=== PATIENT | male | born 1995 | race Caucasian/White ===

== ENCOUNTER 2016-06-08 17:27 | Emergency (ER) | payer SELFPAY ==
[2016-06-08 17:39] VITALS: BP 137/64
[2016-06-08] MEDS ORDERED: Tetan/Diph/Pertus SYR(Tdap)* 0.5 ML SYR(BOOSTRIX) use SYR IM ONE (17:47)
--- NOTE | 2016-06-08 18:25 | UC ---
Lower Extremity/Ankle HPI - HPI Summary HPI Summary: THREE DAYS AGO STEPPED ON NAIL. PAIN IN (PLANTAR 3RD DISTAL METATARSAL ASPECT) RIGHT FOOT. NO DISCHARGE. LAST TETANUS SHOT 16 YEARS AGO. - History of Current Complaint Chief Complaint: UCLowerExtremity Stated Complaint: STEPPED ON BELEN NAIL Time Seen by Provider: 06/08/16 17:32 Hx Obtained From: Patient, Family/Senior Sales Assistant Onset/Duration: Sudden Onset, Lasting Days, Still Present Severity Initially: Mild Severity Currently: Mild Pain Intensity: 3 Pain Scale Used: 0-10 Numeric Aggravating Factor(s): Standing, Ambulation Alleviating Factor(s): Rest Able to Bear Weight: Yes Related History: Occupational Injury - Risk Factors Gout Risk Factors: Negative DVT Risk Factors: Negative Septic Arthritis Risk Factor: Negative - Allergies/Home Medications Allergies/Adverse Reactions: Allergies Allergy/AdvReac Type Severity Reaction Status Date / Time Amoxicillin Allergy Hives Verified 06/08/16 17:40 Penicillins Allergy Hives Verified 06/08/16 17:40 Home Medications: Home Medications NK [No Home Medications Reported] 06/08/16 [History Confirmed 06/08/16] PMH/Surg Hx/FS Hx/Imm Hx Previously Healthy: Yes Endocrine History Of: Denies: Diabetes, Thyroid Disease Cardiovascular History Of: Denies: Cardiac Disorders, Hypertension Respiratory History Of: Denies: COPD, Asthma GI/ History Of: Denies: Ulcer - Surgical History Surgical History: None - Family History Known Family History: Negative: Diabetes, Blood Disorder - Social History Occupation: Employed Full-time Lives: With Family Alcohol Use: None Substance Use Type: None Smoking Status (MU): Light Every Day Tobacco Smoker Type: Cigarettes Household Exposure Type: Cigarettes Cessation Counseling: Patient Advised to Stop - Immunization History Most Recent Tetanus Shot: 2000 Review of Systems Constitutional: Negative Skin: Other - PUNCTURE WOUND RIGHT FOOT Eyes: Negative ENT: Negative Respiratory: Negative Cardiovascular: Negative Gastrointestinal: Negative Genitourinary: Negative Motor: Negative Neurovascular: Negative Musculoskeletal: Negative Neurological: Negative Psychological: Negative All Other Systems Reviewed And Are Negative: Yes Physical Exam Triage Information Reviewed: Yes Appearance: Well-Appearing, No Pain Distress, Well-Nourished Vital Signs: Initial Vital Signs Temp 97.8 F 06/08/16 17:36 Pulse 83 06/08/16 17:36 Resp 16 06/08/16 17:36 BP 137/64 06/08/16 17:36 Pulse Ox 98 06/08/16 17:36 Vital Signs Reviewed: Yes Eye Exam: Normal Eyes: Positive: Conjunctiva Clear ENT Exam: Normal ENT: Positive: Normal ENT inspection, Hearing grossly normal, Pharynx normal, TMs normal Dental Exam: Normal Neck exam: Normal Neck: Positive: Supple, Nontender, No Lymphadenopathy Respiratory Exam: Normal Respiratory: Positive: Chest non-tender, Lungs clear, Normal breath sounds, No respiratory distress, No accessory muscle use Cardiovascular Exam: Normal Cardiovascular: Positive: RRR, No Murmur, Pulses Normal Abdominal Exam: Normal Abdomen Description: Positive: Nontender, No Organomegaly Musculoskeletal Exam: Normal Musculoskeletal: Positive: Strength Intact, ROM Intact, No Edema Neurological Exam: Normal Psychological Exam: Normal Psychological: Positive: Normal Response To Family Skin: Positive: Other - RIGHT FOOT PUNCTURE WOUND Lower Extremity Course/Dx - Differential Dx/Diagnosis Differential Diagnosis/HQI/PQRI: Fracture (Closed), Fracture (Open), Puncture Wound, Sprain, Strain Provider Diagnoses: PUNCTURE WOUND RIGHT FOOT Discharge - Discharge Plan Condition: Stable Disposition: HOME Patient Education Materials: Puncture Wound (ED) Referrals: [facility] [Outside] No Primary Care Phys,NOPCP [Primary Care Provider] - Images Feet (Multiple View): 1 - PUNCTURE WOUND HERE
--- NOTE | 2016-06-08 18:58 | RAD ---
INDICATION: Dorsal puncture wound at the level of the third metatarsal. COMPARISON: None. TECHNIQUE: 3 views of the right foot were obtained. FINDINGS: The adequately corticated bones are properly aligned. Joint spaces appear maintained. No fracture, dislocation or focal bony abnormality is seen. No subcutaneous foreign body is seen overlying the soft tissues. IMPRESSION: Normal radiograph of the right foot.
== END 2016-06-08 18:18 | disposition home or self-care (01) ==
LOC: UCEAST 17:27
DX: S91.331A Puncture wound without foreign body, right foot, initial encounter (principal); W45.0XXA Nail entering through skin, initial encounter; Y93.9 Activity, unspecified; Y92.9 Unspecified place or not applicable; Y99.0 Civilian activity done for income or pay; Z23 Encounter for immunization; Z88.1 Allergy status to other antibiotic agents; Z88.0 Allergy status to penicillin; F17.210 Nicotine dependence, cigarettes, uncomplicated
CPT/HCPCS: 90471; 90715; 99201; G0463

== ENCOUNTER 2016-12-09 19:20 | Emergency (ER) | payer BC ==
[2016-12-09 20:27] VITALS: BP 143/80
--- NOTE | 2016-12-09 20:53 | UC ---
Knee Pain HPI - HPI Summary HPI Summary: pain this morning in the left knee, with movement along the medial border of the patella, worse in the last degrees of extension - History of Current Complaint Chief Complaint: UCLowerExtremity Stated Complaint: LEFT KNEE Time Seen by Provider: 12/09/16 20:23 Hx Obtained From: Patient Onset/Duration: Sudden Onset, Lasting Hours Severity Initially: Mild Severity Currently: Mild - Allergies/Home Medications Allergies/Adverse Reactions: Allergies Allergy/AdvReac Type Severity Reaction Status Date / Time Amoxicillin Allergy Hives Verified 12/09/16 20:27 Penicillins Allergy Hives Verified 12/09/16 20:27 PMH/Surg Hx/FS Hx/Imm Hx Previously Healthy: Yes - Surgical History Surgical History: None - Family History Known Family History: Negative: Diabetes, Blood Disorder - Social History Occupation: Employed Full-time Alcohol Use: None Substance Use Type: None Smoking Status (MU): Never Smoked Tobacco Type: Cigarettes Household Exposure Type: Cigarettes - Immunization History Most Recent Influenza Vaccination: no Most Recent Tetanus Shot: 2000 Review of Systems Constitutional: Negative Skin: Negative Eyes: Negative ENT: Negative Respiratory: Negative Cardiovascular: Negative Gastrointestinal: Negative Genitourinary: Negative Motor: Negative Neurovascular: Negative Musculoskeletal: Arthralgia, Myalgia Neurological: Negative Psychological: Negative Is Patient Immunocompromised?: No All Other Systems Reviewed And Are Negative: Yes Physical Exam Triage Information Reviewed: Yes Appearance: Well-Appearing, Well-Nourished, Pain Distress Vital Signs: Initial Vital Signs Temp 98.4 F 12/09/16 20:23 Pulse 65 12/09/16 20:23 Resp 14 12/09/16 20:23 BP 143/80 12/09/16 20:23 Pulse Ox 100 12/09/16 20:23 Vital Signs Reviewed: Yes Eye Exam: Normal ENT Exam: Normal Dental Exam: Normal Neck exam: Normal Respiratory Exam: Normal Respiratory: Positive: Chest non-tender, Lungs clear, Normal breath sounds Cardiovascular Exam: Normal Cardiovascular: Positive: RRR, No Murmur, Pulses Normal Abdominal Exam: Normal Abdomen Description: Positive: Nontender, No Organomegaly, Soft Bowel Sounds: Positive: Present Musculoskeletal: Positive: Strength Intact, ROM Intact, No Edema, Other: - pain with movement Neurological Exam: Normal Neurological: Positive: Alert, Muscle Tone Normal Psychological Exam: Normal Skin Exam: Normal Knee Pain Course/Dx - Course Course Of Treatment: hx obtained, exam performed, meds reviewed, educated about patellofemoral syndrome, PT referral given - Differential Dx/Diagnosis Differential Diagnosis/HQI/PQRI: Patellofemoral Syndrome, Sprain, Strain, Tendonitis 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 take tomorrow off, rest and use the meloxicam. 2. I have given you a referral for PT.
== END 2016-12-09 20:52 | disposition home or self-care (01) ==
LOC: UCCORT 19:20
DX: M25.562 Pain in left knee (principal); Z88.0 Allergy status to penicillin; Z77.22 Contact with and (suspected) exposure to environmental tobacco smoke (acute) (chronic)
CPT/HCPCS: 99212; G0463

== ENCOUNTER 2017-03-24 19:58 | Emergency (ER) | payer BC ==
--- NOTE | 2017-03-24 20:14 | UC ---
Ear Complaint HPI - HPI Summary HPI Summary: 21 year old male presents with left ear pain. - History of Current Complaint Stated Complaint: L EAR PAIN Time Seen by Provider: 03/24/17 20:09 Hx Obtained From: Patient Onset/Duration: Sudden Onset Severity Initially: Moderate Severity Currently: Moderate Pain Scale Used: 0-10 Numeric - 5 - Allergies/Home Medications Allergies/Adverse Reactions: Allergies Allergy/AdvReac Type Severity Reaction Status Date / Time Amoxicillin Allergy Hives Verified 03/24/17 20:12 Penicillins Allergy Hives Verified 03/24/17 20:12 PMH/Surg Hx/FS Hx/Imm Hx Previously Healthy: Yes - Surgical History Surgical History: None - Family History Known Family History: Negative: Diabetes, Blood Disorder - Social History Alcohol Use: None Substance Use Type: None Smoking Status (MU): Never Smoked Tobacco Type: Cigarettes Household Exposure Type: Cigarettes - Immunization History Most Recent Influenza Vaccination: no Most Recent Tetanus Shot: 2000 Review of Systems Constitutional: Negative Skin: Negative Eyes: Negative ENT: Ear Ache Respiratory: Negative Cardiovascular: Negative Gastrointestinal: Negative Genitourinary: Negative Motor: Negative Neurovascular: Negative Musculoskeletal: Negative Neurological: Negative Psychological: Negative All Other Systems Reviewed And Are Negative: Yes Physical Exam Triage Information Reviewed: Yes Vital Signs Reviewed: Yes Eye Exam: Normal ENT: Positive: Other - bilateral externa ear canal erythema Dental Exam: Normal Neck exam: Normal Neck: Positive: 1 Respiratory Exam: Normal Cardiovascular Exam: Normal Abdominal Exam: Normal Musculoskeletal Exam: Normal Neurological Exam: Normal Psychological Exam: Normal Skin Exam: Normal Ear Complaint Course/Dx - Differential Dx/Diagnosis Provider Diagnoses: bilateral otitis externa. allergic rhinitis Discharge - Discharge Plan Condition: Stable Disposition: HOME Prescriptions: LoraTADine TAB(NF) [Claritin 10 MG TAB(NF)] 10 mg PO DAILY #30 tab Neomyc/Polym/HC 1% OTIC SUSP* [Cortisporin Otic Susp 1%*] 4 drop BOTH EARS QID # 1 btl Patient Education Materials: Otitis Externa (ED), Earache (ED) Forms: *Work Release Referrals: No Primary Care Phys,NOPCP [Primary Care Provider] -
[2017-03-24 20:16] VITALS: BP 132/70
== END 2017-03-24 20:27 | disposition home or self-care (01) ==
LOC: UCCORT 19:58
DX: H60.93 Unspecified otitis externa, bilateral (principal); J30.9 Allergic rhinitis, unspecified; Z88.0 Allergy status to penicillin; Z77.22 Contact with and (suspected) exposure to environmental tobacco smoke (acute) (chronic)
CPT/HCPCS: 99212; G0463

== ENCOUNTER 2017-05-20 15:00 | Emergency (ER) | payer BC ==
[2017-05-20 15:25] VITALS: BP 126/73
--- NOTE | 2017-05-20 15:32 | UC ---
UC General HPI - HPI Summary HPI Summary: PT C/O FEVER, HEADACHE, NAUSEA WITH VOMITING SINCE LAST PM. HE IS NOW FEELING IMPROVED AND ABLE TO DRINK WITH NO VOMITING. DENIES ANY ABDOMINAL PAIN, DIARRHEA AND SICK CONTACTS. STATES NEEDS A WORK NOTED. - History of Current Complaint Chief Complaint: UCGI Stated Complaint: HEADACHE,VOMITING Time Seen by Provider: 05/20/17 15:26 Hx Obtained From: Patient Onset/Duration: Gradual Onset Pain Intensity: 0 Aggravating: NOTHING Alleviating: NOTHING Associated Signs & Symptoms: Positive: Fever, Nausea, Vomiting. Negative: Abdominal Pain, Diarrhea - Allergy/Home Medications Allergies/Adverse Reactions: Allergies Allergy/AdvReac Type Severity Reaction Status Date / Time amoxicillin Allergy Intermediate Hives Verified 05/20/17 15:27 Penicillins Allergy Intermediate Hives Verified 05/20/17 15:27 Home Medications: Home Medications NK [No Home Medications Reported] 05/20/17 [History Confirmed 05/20/17] PMH/Surg Hx/FS Hx/Imm Hx Previously Healthy: Yes - Surgical History Surgical History: None - Family History Known Family History: Negative: Diabetes, Blood Disorder - Social History Lives: With Family Alcohol Use: Occasionally Substance Use Type: None Smoking Status (MU): Never Smoked Tobacco Type: Cigarettes Household Exposure Type: Cigarettes - Immunization History Most Recent Influenza Vaccination: no Most Recent Tetanus Shot: 2000 Vaccination Up to Date: Yes Review of Systems Constitutional: Fever Skin: Negative Eyes: Negative ENT: Negative Respiratory: Negative Cardiovascular: Negative Gastrointestinal: Vomiting, Nausea Genitourinary: Negative Motor: Negative Neurovascular: Negative Musculoskeletal: Negative Neurological: Negative Psychological: Negative Is Patient Immunocompromised?: No All Other Systems Reviewed And Are Negative: Yes Physical Exam Triage Information Reviewed: Yes Appearance: Well-Appearing Vital Signs: Initial Vital Signs Temp 97.3 F 05/20/17 15:21 Pulse 63 05/20/17 15:21 Resp 17 05/20/17 15:21 BP 126/73 05/20/17 15:21 Pulse Ox 99 05/20/17 15:21 Vital Signs Reviewed: Yes Eyes: Positive: Conjunctiva Clear ENT: Positive: Pharynx normal, TMs normal. Negative: Nasal congestion, Nasal drainage Neck: Positive: Supple, Nontender, No Lymphadenopathy Respiratory: Positive: Lungs clear, Normal breath sounds Cardiovascular: Positive: RRR, No Murmur Abdomen Description: Positive: Nontender, No Organomegaly, Soft. Negative: Distended, Guarding Bowel Sounds: Positive: Present Neurological: Positive: Alert Psychological: Positive: Age Appropriate Behavior Skin Exam: Normal Course/Dx - Course Course Of Treatment: NON TOXIC, NO ACUTE ABDOMEN AND PT REPORTS SYMPTOMS HAVE RESOLVED. WILL REFER BACK TO HIS PCP AT [facility] IN [place] FOR F/U. - Differential Dx - Multi-Symptom Provider Diagnoses: NAUSEA, VOMITING Discharge - Discharge Plan Condition: Stable Disposition: HOME Patient Education Materials: Acute Nausea and Vomiting (ED) Forms: *Work Release Referrals: No Primary Care Phys,NOPCP [Primary Care Provider] - Additional Instructions: FOLLOW UP WITH YOUR PRIMARY CARE PROVIDER AT [facility] IN 3-5 DAYS FOR A RECHECK OR SOONER IF WORSE.
== END 2017-05-20 15:43 | disposition home or self-care (01) ==
LOC: UCCORT 15:00
DX: R11.2 Nausea with vomiting, unspecified (principal); Z88.0 Allergy status to penicillin
CPT/HCPCS: 99211; G0463